=== PATIENT | female | born 1935 | race Caucasian/White ===

== ENCOUNTER → 2020-11-10 18:15 | Outpatient (CLI) | payer MEDICARE ==
[2020-11-10 19:21] LABS: BASOPHILS 0.3 % (0-2); EOSINOPHILS 2.1 % (0-7); HEMOGLOBIN 10.3 g/dL (12-16); IMMATURE GRANULOCYTES 0.2 % (0-5); LYMPHOCYTE ABS# 1.22 10x3/uL (1.18-3.74); LYMPHOCYTES 21.3 % (15-50); MCH 25.6 pg (26.0-34.0); MCHC 30.3 g/dL (31.0-37.0); MCV 84.6 fL (80.0-100.0); MONOCYTES 6.3 % (2-11); NEUTROPHIL ABS# 3.99 10x3/uL (1.56-6.13); NEUTROPHILS 69.8 % (40-80); PLATELET COUNT 323 10x3/uL (130-400); RBC 4.02 10x6/uL (4.00-5.40); WBC 5.7 10x3/uL (4.8-10.8)
== END | disposition home or self-care (01) ==
LOC: D.LABREF 18:15
DX: K57.30 Diverticulosis of large intestine without perforation or abscess without bleeding (principal); R19.5 Other fecal abnormalities; K58.9 Irritable bowel syndrome, unspecified; R19.7 Diarrhea, unspecified

== ENCOUNTER → 2021-01-18 07:37 | Outpatient (CLI) | payer MEDICARE, OTHER | END | disposition home or self-care (01) | LOC: D.LAB 07:36 | PROVIDERS: ATTEND Internal Medicine Pulmonary Disease | DX: Z11.52 Encounter for screening for COVID-19 (principal) ==

== ENCOUNTER → 2021-01-23 06:37 | Outpatient (CLI) | payer MEDICARE, OTHER ==
[2021-01-23 09:12] LABS: BASOPHILS 0.9 % (0-2); EOSINOPHILS 1.6 % (0-7); HEMATOCRIT 35.1 % (36.0-48.0); MCH 25.2 pg (26.0-34.0); MCHC 31.4 g/dL (31.0-37.0); MCV 80.1 fL (80.0-100.0); MEAN PLATELET VOLUME 8.5 fL (7.4-10.4); MONOCYTES 4.5 % (2-11); PLATELET COUNT 382 10x3/uL (130-400); RBC 4.38 10x6/uL (4.00-5.40); RDW 16.1 % (11.5-14.5); WBC 7.1 10x3/uL (4.8-10.8)
[2021-01-24 11:11] LABS: ANA REFLEX - DIRECT Negative (Negative)
[2021-01-25 14:10] LABS: IMMUNOGLOBULIN E 193 IU/mL (6-495)
== END | disposition home or self-care (01) ==
LOC: D.RT 06:37
PROVIDERS: ATTEND Internal Medicine Pulmonary Disease
DX: R06.2 Wheezing (principal); R91.8 Other nonspecific abnormal finding of lung field; R60.0 Localized edema; Z11.52 Encounter for screening for COVID-19